=== PATIENT | female | born 1990 ===

== ENCOUNTER 2023-08-27 11:58 | Inpatient (IN) | payer OTHER ==
[~2023-08-27] VITALS: Ht 160 cm; Wt 82.6 kg
[2023-08-30] MEDS ORDERED: PRENATABS RX T1 EACH PO (08:31)
[2023-08-30 09:53] LABS: HEMATOCRIT 36.5 % (36.0-45.00); HEMOGLOBIN 12.1 g/dL (12.0-15.00); MEAN CELL VOLUME 87.7 fL (80.00-100.00); MEAN CORPUSCULAR HGB CONC 33.1 g/dl (32.0-36.0); PLATELET COUNT 192 K/uL (150-450); RED BLOOD COUNT 4.16 M/uL (4.00-6.00); RED CELL DISTRIBUTION WIDTH 14.4 % (11.5-14.5)
[2023-08-30 10:06] LABS: ALBUMIN 2.8 gm/dL (3.4-5.0); BILIRUBIN TOTAL 0.42 mg/dL (0.3-1.2); CALCIUM 8.4 mg/dL (8.5-10.1); CREATININE SERUM 0.72 mg/dL (0.55-1.02); GFR 92.72; GLOBULINA 4.3 G/DL (2.4-3.5); POTASSIUM 3.72 mEq/L (3.5-5.1); TOTAL PROTEIN 7.1 gm/dL (6.4-8.2)
[2023-08-30 10:20] LABS: INR 1.06; PARTIAL THROMBOPLASTIN TIME 27.7 SECONDS (22.0-34.0)
[2023-08-30 10:57] LABS: PROTHROMBIN TIME 11.1 SECONDS (9.0-11.5)
== END 2023-09-01 13:31 | disposition home or self-care (01) | DRG 807 ==
LOC: OB/GYN 08-30 07:54 → LDR 08-30 07:54 → OB/GYN 08-30 09:38
PROVIDERS: ADMIT Obstetrics & Gynecology; ATTEND Obstetrics & Gynecology
PROC: 10E0XZZ Delivery of Products of Conception, External Approach (ICD-10-PCS; principal; 2023-08-30)
PROC: 0KQM0ZZ Repair Perineum Muscle, Open Approach (ICD-10-PCS; 2023-08-30)
PROC: 4A1HXCZ Monitoring of Products of Conception, Cardiac Rate, External Approach (ICD-10-PCS; 2023-08-30)
DX: O70.1 Second degree perineal laceration during delivery (principal); Z37.0 Single live birth; Z3A.38 38 weeks gestation of pregnancy; Z20.822 Contact with and (suspected) exposure to COVID-19